=== PATIENT | female | born 1980 | race Caucasian/White ===

== ENCOUNTER 2018-08-05 12:08 | Inpatient (IN) | payer OTHER ==
[~2018-08-05] VITALS: Ht 154.9 cm; Wt 47.6 kg
[2018-08-05 12:30] VITALS: BP 121/82
--- NOTE | 2018-08-05 12:40 | NUR ---
Pre-Admission Note Received pt in intake, pt is a 38 y/o F being admitted for medically supervised ETOH w/d. Pt appears anxious, has an avoidant eye contact, worried affect, guarded, and has a clean presentation. Pt verbalized she feels anxious, agitated, irritable, depressed and shaky; tremors are noted. Pt is the primary source of info. Allergies to seafood and amoxicillin. Medical Hx of depression, ADHD, PTSD, insomnia. Hx of SI/SA in 2010; pt consumed a large amount of pills and was admitted 5150 at a psych unit. No SI at this time. PCP is Dr. Wan, and has no psych md. Pt states this is her first time in treatment. Chews 1-2 cans of chewing tobacco daily. Initial VS are BP: 121/82, HR: 97, RR: 18, O2sat: 96% Substance Use HX: 1. ETOH: pt drinks on an almost daily basis for 2 years; binge drinking with occasional 1-2 days w/out drinking and starting again. Drinks mostly beer and wine with occasional hard liquor. Will Drink 15 beers at most. Last drinking run was Saturday08/01/18 to yesterday 08/04/18. Yesterday drank 2 beers, day before drank the most: 3 margaritas, 6 beers and 1 shot of vodka. First drank at age 20. Pt recalls it became a big problem in the last 2 years.
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
[2018-08-05 13:10] LABS: *URINE HCG, QUAL NEGATIVE (NEGATIVE)
[2018-08-05 13:17] LABS: *AMPHETAMINE, URINE POSITIVE (NEGATIVE); *BARBITURATE, URINE NEGATIVE (NEGATIVE); *CANNABINOID, URINE NEGATIVE (NEGATIVE); *COCCAINE, URINE NEGATIVE (NEGATIVE); *OPIATE, URINE NEGATIVE (NEGATIVE); *PHENCYCLIDINE SCREEN,URINE NEGATIVE (NEGATIVE)
[2018-08-05] MEDS ORDERED: diphenhydrAMINE 50 MG CAPSULE PO PRN (14:45)
[2018-08-05] MEDS ORDERED: MAGNESIUM HYDROXIDE 30 ML LIQUID UDC PO PRN (14:45)
[2018-08-05] MEDS ORDERED: LORAZEPAM 2 MG/1 ML VIAL IM PRN (14:45)
[2018-08-05] MEDS ORDERED: THIAMINE HCL 200 MG/2 ML VIAL IM ONE (14:45)
[2018-08-05] MEDS ORDERED: MAG HYDROX/AL HYDROX/SIMETH 30 ML LIQUID UDC PO PRN (14:45)
[2018-08-05] MEDS ORDERED: LORAZEPAM 1 MG TABLET PO PRN (14:45)
[2018-08-05] MEDS ORDERED: IBUPROFEN 400 MG TABLET PO PRN (14:45)
[2018-08-05] MEDS ORDERED: CLONIDINE HCL 0.1 MG TABLET PO PRN (14:45)
[2018-08-05] MEDS ORDERED: ACETAMINOPHEN 325 MG TABLET PO PRN (14:45)
[2018-08-05] MEDS ORDERED: LOPERAMIDE HCL 2 MG CAPSULE PO PRN ×2 (14:45)
[2018-08-05] MEDS ORDERED: HYDROXYZINE PAMOATE 25 MG CAPSULE PO PRN (14:45)
[2018-08-05] MEDS ORDERED: ONDANSETRON ODT 4 MG TAB.RAPDIS SL PRN (14:45)
[2018-08-05] MEDS ORDERED: ONDANSETRON 4 MG/2 ML VIAL IM PRN (14:45)
[2018-08-05] MEDS ORDERED: MIRALAX 17 GM POWD.PACK PO PRN (14:45)
[2018-08-05] MEDS: FOLIC ACID 1 MG TABLET PO SCH (15:13)
[2018-08-05] MEDS: MULTIVITAMINS,THERAPEUTIC TABLET PO SCH (15:13)
[2018-08-05] MEDS: LORAZEPAM 1 MG TABLET PO SCH ×3 (15:13→22:02)
[2018-08-05] MEDS: NICOTINE 7 MG/24HR PATCH TD SCH (15:22)
[2018-08-05 16:00] VITALS: BP 98/63
--- NOTE | 2018-08-05 18:14 | NUR ---
CIWA ASSESSMENT CIWA score noted 10. Patient reported increased in anxiety, agitation, restless, light headed, Patient is due for schedule mediation. Will cont to monitor.
--- NOTE | 2018-08-05 19:17 | NUR ---
END OF SHIFT NOTE Patient is newly admitted for ETOH withdrawal. Patient started on Ativan taper tolerating well. Last CIWA score was 10 noted with anxiety, agitation, restless, chills sweats, increased fatigue. Patient rested in her room most of the time, no PRN'S were given. All safety measures in place, call light within reach. patient endorse to night nurse to continue with care.
--- NOTE | 2018-08-05 19:20 | NUR ---
Start Of Shift: Patient is a 38 yr old female who was admitted to [facility] today 08/05/18 for a medically supervised withdrawal from ETOH, she has been started on 3 day Ativan taper and this is day1. Currently she is asleep in bed, breathing even and unlabored, side rails up x2. PRN Nicotine patch was placed today. Last CIWA was 10. Continue to follow MD plan of care and offer support as needed.
[2018-08-05 20:00] VITALS: BP 109/74
--- NOTE | 2018-08-05 22:00 | NUR ---
CIWA 12 Patient presents with gross bilateral hand tremors, lethargy, difficulty thinking clearly, diaphoresis , chills and increased anxiety. Scheduled 1mg PO Ativan given
[2018-08-05 22:42] LABS: BASOPHILS # (AUTO) 0.1 K/uL (0.0-8.0); EOSINOPHILS # (AUTO) 0.1 K/uL (0.0-0.7); EOSINOPHILS % (AUTO) 1.1 % (0.0-7.0); HEMATOCRIT 38.9 % (31.2-41.9); HEMOGLOBIN 13.7 g/dL (10.9-14.3); LYMPHOCYTES # (AUTO) 2.1 K/uL (20.0-40.0); LYMPHOCYTES % (AUTO) 34.9 % (20.5-51.5); MEAN CORPUSCULAR HEMOGLOBIN 33.8 uug (24.7-32.8); MEAN CORPUSCULAR HGB CONC 35 g/dL (32.3-35.6); MEAN CORPUSCULAR VOLUME 95.8 fL (75.5-95.3); MONOCYTES # (AUTO) 0.6 K/uL (2.0-10.0); MONOCYTES % (AUTO) 9.8 % (0.0-11.0); NEUTROPHILS # (AUTO) 3.1 K/uL (1.8-8.9); NEUTROPHILS % (AUTO) 53.2 % (38.5-71.5); PLATELET COUNT (AUTO) 301 K/uL (179-408); RED BLOOD CELL COUNT(AUTO) 4.06 MIL/uL (3.63-4.92); WHITE BLOOD COUNT (AUTO) 5.9 K/uL (3.8-11.8)
[2018-08-05 22:59] LABS: ALANINE AMINOTRANSFERASE 27 U/L (14-59); ALKALINE PHOSPHATASE 66 U/L (50-136); ASPARTATE AMINOTRANSFERASE 22 U/L (15-37); BILIRUBIN,TOTAL 0.6 mg/dL (0.2-1.0); CARBON DIOXIDE 30 mmol/L (21-32); CHLORIDE 106 mmol/L (98-107); CREATININE 0.9 mg/dL (0.6-1.3); GLUCOSE 104 mg/dL (74-106); MAGNESIUM 1.9 mg/dL (1.8-2.4); POTASSIUM 3.5 mmol/L (3.5-5.1); TOTAL PROTEIN, SERUM 6.2 g/dL (6.4-8.2); UREA NITROGEN, BLOOD 13 mg/dL (7-18)
[2018-08-05 23:21] LABS: ETHANOL < 3 MG/DL (0-0)
[2018-08-06] VITALS: BP 101/62
--- NOTE | 2018-08-06 | NUR ---
CIWA Deferred, patient unable to answer questions due to deep state of drowsiness, VS taken and stable
--- NOTE | 2018-08-06 04:00 | NUR ---
CIWA/VITALS Patient is in a deep sleep, Vitals and CIWA deferred, breathing even and unlabored RR 14, call light within reach
--- NOTE | 2018-08-06 06:59 | NUR ---
End Of Shift: Patient is a 38 yr old female who was admitted to [facility] on 08/05/18 for a medically supervised withdrawal from ETOH ( Beer/Vodka ), she has been placed on a 3 day Ativan taper and this is day 2. No PRN medications were requested or required this shift. Withdrawal symptoms present as gross bilateral hand tremors, lethargy, difficulty thinking clearly, diaphoresis and chills. She had a fluid intake of 250ML, 1Voids and 0BM, she slept for 11 hours and last CIWA was 12 @ 8pm. Continue to follow MD plan of care and offer support as needed. Endorsed to distribution agent.
--- NOTE | 2018-08-06 07:50 | NUR ---
START OF SHIFT NOTE Received report from night nurse, patient is 38 year old female admitted for ETOH withdrawal and continues with Valium taper tolerating well. Per endorsement patient did not receive any PRN, slept for 11 hours and last CIWA score was 12. Received patient asleep in her room responsive to verbal and tactile stimuli, breathing normal no SOB noted, responsive to verbal and tactile stimuli. Patient is due for scheduled medications. All safety measures in place, Call light within reach. Will cont to monitor.
[2018-08-06 08:00] VITALS: BP 100/67
[2018-08-06] MEDS: THIAMINE HCL 100 MG TABLET PO SCH (08:25)
[2018-08-06] MEDS: LORAZEPAM 1 MG TABLET PO SCH ×3 (08:25→20:06)
[2018-08-06] MEDS: FOLIC ACID 1 MG TABLET PO SCH (08:25)
[2018-08-06] MEDS: MULTIVITAMINS,THERAPEUTIC TABLET PO SCH (08:25)
--- NOTE | 2018-08-06 08:25 | NUR ---
CIWA ASSESSMENT CIWA score noted 13. Patient reported increased in anxiety, agitation, restless, light headed, increased fatigue. Patient was given schedule mediation. Will cont to monitor.
[2018-08-06] MEDS: NICOTINE 7 MG/24HR PATCH TD SCH (08:32)
[2018-08-06] MEDS ORDERED: TUBERCULIN,PURIF.PROT.DERIV. 5 TU/0.1 ML TEST ID ONE (09:00)
[2018-08-06] MEDS ORDERED: AMPH15TA2 PO (09:27)
[2018-08-06 12:00] VITALS: BP 94/61
--- NOTE | 2018-08-06 14:20 | NUR ---
CIWA ASSESSMENT CIWA score noted 12. Patient reported increased in anxiety, agitation, restless, patient reported light headed subsided, Patient is given her schedule mediation. Will cont to monitor.
[2018-08-06 16:00] VITALS: BP 102/67
--- NOTE | 2018-08-06 16:00 | NUR ---
CIWA ASSESSMENT CIWA score noted 11. Patient continues to presented with anxiety, agitation, restless, fatigue, bilateral hand tremors. Will cont to monitor.
--- NOTE | 2018-08-06 19:17 | NUR ---
END OF SHIFT NOTE Gave report to night nurse, 38 year old female admitted for ETOH withdrawal. Patient continues with Ativan taper tolerating well. Patient presented with anxiety, agitation, anhedonia, unkempt, restless, bilateral hand tremors, fatigue. Patient was given her scheduled medications and did not receive any PRN. Patient did not attend any group activities. Encourage patient to attend groups and activities to learn new coping skills with good verbal understanding. Last CIWA score was -11. All safety measures in place, call light within reach. Patient endorse to night nurse in stable condition.
--- NOTE | 2018-08-06 19:18 | NUR ---
Start of shift note Received report from day shift nurse. Pt is a 38 yo female, A+Ox4, presenting to [facility] for medically supervised ETOH withdrawal. PT noted with fatigue, anxiety, and agitation. Pt has HX of depression, ADD, PTSD, insomnia, and suicide attempt which will be monitored during shift. Pt is on 3 day Ativan taper, tolerated well. Respirations even and unlabored. Will continue to monitor.
[2018-08-06 20:12] VITALS: BP 98/63
--- NOTE | 2018-08-06 20:12 | NUR ---
CIWA Assessment CIWA: 10. Pt noted with fine tremors, sweat on face, anxiety, and agitation. Respirations even and unlabored. Will continue to monitor.
--- NOTE | 2018-08-07 00:18 | NUR ---
V/S refused and CIWA assessment deferred for sleep. Respirations even and unlabored. Will continue to monitor.
--- NOTE | 2018-08-07 04:17 | NUR ---
V/S refused and CIWA assessment deferred for sleep. Respirations even and unlabored. Will continue to monitor.
--- NOTE | 2018-08-07 07:00 | NUR ---
End of shift note Pt was continuously noted with fatigue, anxiety, and agitation. Pt remained in room for entire shift. Pt remained compliant and cooperative with all aspects of treatment. Pt was not given any PRN medications during shift. Pt is on 3 day Ativan taper, tolerated well. Pt slept for a total of 11 HRS. Last CIWA: 10 @2011. Respirations even and unlabored. Will endorse to day shift nurse.
--- NOTE | 2018-08-07 07:40 | NUR ---
START OF SHIFT Endorse rcvd from ongoing nurse, client had an uneventful night, client slept 11 hrs. Last CIWA 10 @ 1999. Client is in bed, lying on her R side, she sounds asleep, easy to arouse. RR 16, even, non-labored. Call light within reach. Will continue to monitor.
[2018-08-07 08:06] LABS: HEPATITIS B SURFACE AG Negative (Negative)
[2018-08-07 08:25] VITALS: BP 102/63
[2018-08-07] MEDS: MULTIVITAMINS,THERAPEUTIC TABLET PO SCH (09:27)
[2018-08-07] MEDS: LORAZEPAM 1 MG TABLET PO SCH ×2 (09:27→21:12)
[2018-08-07] MEDS: FOLIC ACID 1 MG TABLET PO SCH (09:27)
[2018-08-07] MEDS: THIAMINE HCL 100 MG TABLET PO SCH (09:27)
[2018-08-07] MEDS: NICOTINE 7 MG/24HR PATCH TD SCH (09:27)
--- NOTE | 2018-08-07 09:27 | NUR ---
CIWA 14 Client continues to present with tremors, increased anxiety, agitation, intermittent perspiration, restless legs, nausea, malaise, fatigue, and difficulty concentrating. Schedules Ativan 1mg PO administered. Encoufage client to attend group therapy to learn skills to maintain sober. Call light within reach.
--- NOTE | 2018-08-07 10:53 | NUR ---
Therapist prompted client to attend group therapy.
[2018-08-07 12:00] VITALS: BP 103/69
--- NOTE | 2018-08-07 12:15 | NUR ---
CIWA 10 Client continue to present with anxiety, flat affect. She repots feeling agitated, anxious, a sense of panic, difficulty concentrating, and fatigue. Client decline PRN medications for management of anxiety. CN and MD notified. Call light within reach.
[2018-08-07 16:55] VITALS: BP 102/69
--- NOTE | 2018-08-07 17:00 | NUR ---
CIWA 10 Client continues to present with anxiety, flat affect. She repots feeling anxious, nauseous, and fatigue. Client decline PRN medications for management of anxiety. MD notified. Call light within reach.
[2018-08-07] MEDS ORDERED: NICOTINE 7 MG/24HR PATCH TD ONE (17:45)
--- NOTE | 2018-08-07 19:11 | NUR ---
END OF SHIFT Endorse client to incoming nurse, client is in room, a/o x 4. Client continues to present with anxiety, nausea, difficulty concentrating, and fatigue. Last CIWA 10 @ 1700. Last dose of 3 day Ativan taper schedule for tonight. Adequate PO fluid intake 1455mL, void x 3. Consumes 50-75% of meals. Call light within reach.
--- NOTE | 2018-08-07 19:14 | NUR ---
Start of shift note Received report from day shift nurse. Pt is a 38 yo female, A+Ox4, presenting to [facility] for medically supervised ETOH withdrawal. Pt noted with fatigue, anxiety, agitation, and depressed demeanor. Pt has HX of depression, ADD, insomnia, and S/A which will be monitored during shift. Pt is on 3 day Ativan taper, tolerated well. Respirations even and unlabored. Will continue to monitor.
[2018-08-07 20:14] VITALS: BP 126/97
--- NOTE | 2018-08-07 20:14 | NUR ---
CIWA Assessment CIWA: 9. Pt noted with fine tremors, sweat on brow, anxiety, agitation, and depressed demeanor. Respirations even and unlabored. Will continue to monitor.
--- NOTE | 2018-08-08 00:17 | NUR ---
V/S refused and CIWA assessment deferred for sleep. Respirations even and unlabored. Will continue to monitor.
--- NOTE | 2018-08-08 04:21 | NUR ---
V/S refused and CIWA assessment deferred for sleep. Respirations even and unlabored. Will continue to monitor.
--- NOTE | 2018-08-08 07:00 | NUR ---
End of shift note Pt was continuously noted with fatigue, anxiety, and agitation. Pt remained in room for majority of shift except to get food from kitchen. Pt remained cooperative and compliant with all aspects of treatment. Pt was not given any PRN medications during shift. Pt is on 3 day Ativan taper, tolerated well. Pt slept for a total of 7 HRS. Last CIWA: 9 @2013. Respirations even and unlabored. Will endorse to day shift nurse.
--- NOTE | 2018-08-08 07:53 | NUR ---
START OF SHIFT Pt is a 38 yr old female admitted on 08/05/18 fir ETOH withdrawal and is on 3 day Ativan taper as ordered. Received report from operation shift supervisor nurse. No PRN's were given during the night. Pt slept for 7 hrs. Last CIWA score was 9 at 1999. Pt is currently in bed resting with respiration even and unlabored. Pt is observed with flushed and clammy skin. Safety precautions observed. Call light is within reach. Will continue to monitor
[2018-08-08 08:00] VITALS: BP 101/60
[2018-08-08] MEDS: NICOTINE 7 MG/24HR PATCH TD SCH (09:24)
[2018-08-08] MEDS: FOLIC ACID 1 MG TABLET PO SCH (09:24)
[2018-08-08] MEDS: THIAMINE HCL 100 MG TABLET PO SCH (09:24)
[2018-08-08] MEDS: MULTIVITAMINS,THERAPEUTIC TABLET PO SCH (09:24)
--- NOTE | 2018-08-08 10:55 | NUR ---
PRN GIVEN Pt c/o constipation. Miralax 17gm PRN was given as ordered, encouraged increase fluid intake. Pt was also offered Prune juice to paper processing machine helper with constipation. Will continue to monitor.
[2018-08-08 12:00] VITALS: BP 102/64
--- NOTE | 2018-08-08 12:00 | NUR ---
CIWA ASSESSMENT' Pt is c/o anxiety, chills and sweats. Pt is observed with flat affect and is avoidant. CIWA score was 6. Will continue to monitor.
[2018-08-08] MEDS ORDERED: NICOTINE 7 MG/24HR PATCH TD ONE (14:45)
--- NOTE | 2018-08-08 15:36 | NUR ---
PRN RE-ASSESSMENT Miralax PRN was effective. pt states of having a x1 BM. Pt was encouraged increase fluid intake. Will continue to monitor.
--- NOTE | 2018-08-08 15:53 | NUR ---
PRN GIVEN Pt was observed with anxiety, flat affect and crying. Pt states of wanting to leave AMA. Pt was spoken to by staff members to continue with treatment. Pt agreed to stay. Clonidine 0.1mg PO PRN and Vistaril 50mg PO PRN was given as ordered for anxiety. Medication was cary well. Will continue to monitor.
[2018-08-08 16:00] VITALS: BP 97/61
[2018-08-08] MEDS ORDERED: CLON0.1T14 PO (17:34)
[2018-08-08] MEDS ORDERED: HYDR-3895 PO (17:34)
--- NOTE | 2018-08-08 19:00 | NUR ---
END OF SHIFT Pt is a 38 yr old female, AA&Ox4. Pt was admitted on 08/05/18 for ETOH withdrawal and completed a 3 day Ativan taper as ordered. Pt was noted with increase fatigue and remained in the room throughout the day. Pt was encouraged to attend group but she refused to attend. Pt was noted isolative and depressive mood with sad facial expression. Pt was also noted crying, stating she wanted to leave AMA and go home to her dogs. Pt was spoken to by several staff members to continue with treatment, pt agreed to stay. Pt was given Clonidine 0.1mg PO PRN and Vistaril 50mg PO PRN for anxiety. Medication was mildly effective. Pt was also given Miralax PRN for constipation. Pt reports of having x1 BM. Pt is to be discharged tomorrow on 08/08/18, discharge location is pending. Last CIWA score was 10 at 1600. Safety precautions observed. Endorsed to fast food shift lead nurse to continue with care.
--- NOTE | 2018-08-08 19:14 | NUR ---
Start of shift note Received report from day shift nurse. Pt is a 38 yo female, A+Ox4, presenting to [facility] for medically supervised ETOH withdrawal. Pt noted with fatigue, agitation. and anxiety. Pt has HX of depression, ADD, PTSD, insomnia, and S/A which will be monitored during shift. Pt has completed 3 day Ativan taper, tolerated well, and is due for discharge tomorrow. Respirations even and unlabored. Will continue to monitor.
[2018-08-08 20:12] VITALS: BP 90/54
--- NOTE | 2018-08-08 20:12 | NUR ---
CIWA Assessment CIWA: 5. Pt noted with sweat on brow, anxiety, agitation, and depressed demeanor. Respirations even and unlabored. Will continue to monitor.
--- NOTE | 2018-08-08 22:04 | NUR ---
PRN Benadryl Pt c/o inability to sleep and requested for PRN Benadryl. Medication given and tolerated well. Will reassess within 1 HR. Will continue to monitor.
--- NOTE | 2018-08-08 23:00 | NUR ---
PRN Benadryl Reassessment Medication effective. Pt is resting well in bed. No s/s of ASE noted at this time. Respirations even and unlabored. Will continue to monitor.
--- NOTE | 2018-08-09 00:12 | NUR ---
V/S refused and CIWA assessment deferred for sleep. Respirations even and unlabored. Will continue to monitor.
--- NOTE | 2018-08-09 04:14 | NUR ---
V/S refused and CIWA assessment deferred for sleep. Respirations even and unlabored. Will continue to monitor.
--- NOTE | 2018-08-09 07:00 | NUR ---
End of shift note Pt was continuously noted with fatigue, anxiety, and agitation. Pt remained in room for entire shift. Pt remained cooperative and compliant with all aspects of treatment. Pt was given PRN Sandeepl @4. Pt has completed 3 day Ativan taper, tolerated well, and is due for discharge today. Pt slept for a total of 7 HRS. Last CIWA: 5 @2011. Respirations even and unlabored. Will endorse to day shift nurse.
--- NOTE | 2018-08-09 07:30 | NUR ---
START OF SHIFT Pt 38 y/o female admitted for etoh withdrawal. Pt received in room on bed with eyes closed resting, but easily arousable to name. Pt alert and oriented to name, place, and time. perrla. Skin warm and moist to touch. Respirations even and unlabored. Pt appears disheveled. Clothes scattered throughout the room. Encouraged to maintain hygiene. Anxious this morning. Pressured speech noted. It was reported that pt slept for 7 hours last night. Last cwia=5 @2000. Pt completed a 3 day ativan taper. Bed on lowest position with side rails x2 up for safety. Call light within reach. Pt is scheduled to be discharged today.
[2018-08-09 08:00] VITALS: BP 100/60
--- NOTE | 2018-08-09 08:00 | NUR ---
CIWA ASSESSMENT ciwa=5. Anxious and irritable. Pressured speech noted.
[2018-08-09] MEDS: FOLIC ACID 1 MG TABLET PO SCH (08:19)
[2018-08-09] MEDS: MULTIVITAMINS,THERAPEUTIC TABLET PO SCH (08:19)
[2018-08-09] MEDS: THIAMINE HCL 100 MG TABLET PO SCH (08:19)
[2018-08-09] MEDS: NICOTINE 7 MG/24HR PATCH TD SCH (08:20)
--- NOTE | 2018-08-09 09:25 | NUR ---
DISCHARGE Pt 38 y/o female admitted for etoh withdrawal. Pt alert and oriented to name, place, and time. Perrla. Skin warm and dry to touch. Respirations even and unlabored. Pressured speech noted. Slightly irritable. VS wnl. Denies any SI/ HI. No belongings in cassette and no home medications noted. Belongings in cabinet, ppd results, and discharge papers packed in pt bag. Pt discharged home and was picked up by friend. No distress noted.
== END 2018-08-09 09:25 | disposition home or self-care (01) | DRG 895 ==
LOC: SRC 12:08
PROVIDERS: ADMIT Family Medicine Addiction Medicine; ATTEND Family Medicine Addiction Medicine
PROC: HZ2ZZZZ Detoxification Services for Substance Abuse Treatment (ICD-10-PCS; principal; 2018-08-05)
PROC: HZ31ZZZ Individual Counseling for Substance Abuse Treatment, Behavioral (ICD-10-PCS; 2018-08-07)
DX: F10.230 Alcohol dependence with withdrawal, uncomplicated (principal); Y90.9 Presence of alcohol in blood, level not specified; F17.210 Nicotine dependence, cigarettes, uncomplicated; F90.9 Attention-deficit hyperactivity disorder, unspecified type; Z91.5 Personal history of self-harm; F43.10 Post-traumatic stress disorder, unspecified; X58.XXXS Exposure to other specified factors, sequela; Z88.1 Allergy status to other antibiotic agents; Z91.013 Allergy to seafood; G47.00 Insomnia, unspecified; K59.00 Constipation, unspecified
CPT/HCPCS: 36415; 80307; 80324; 83735; 84443; 84703; 85025; 86580; 86592; 86705; 86803; 87340; 87806; A4663; A9150; G0480; J3411; Q0163